=== PATIENT | female | born 1960 | race Caucasian/White ===

== ENCOUNTER 2023-07-17 07:45 | Day surgery (SDC) | payer BC ==
[~2023-07-17] VITALS: Ht 165.1 cm; Wt 89.3 kg
[~2023-07-17 07:45] MED LIST: Multivitamin1 EAC1 PO
[2023-07-17] MEDS ORDERED: LOSA25 PO (08:17)
--- NOTE | 2023-07-17 10:00 | NUR ---
07/17/23 Jess Tsai AROUND 0910, PT WAS INFORMED THAT DR. WHITESIDE HAD TO GO TO [facility]'S OR FOR AN EMERGENT PROCEDURE. WAS BROUGHT TO BEDSIDE. CALL LIGHT WITHIN REACH. PT AND PLEASANT. FOLLOWED-UP WITH PT AND THAT DR. HOODEmili WAS STILL IN AN EMERGENT PROCEDURE ON THE [facility] SIDE. PT WAS UPDATED THAT HER CASE WILL BE THE NEXT CASE ONCE DR. WHITESIDE WAS FINISHED WITH EMERGENT PROCEDURE. PT AND EXPRESSED UNDERSTANDING AND APPRICIATED THE UPDATE. PT AND STILL PLEASANT.
[2023-07-17 11:46] VITALS: BP 124/68
== END 2023-07-17 11:43 | disposition home or self-care (01) ==
LOC: ORSCSDS 07:45
PROVIDERS: Internal Medicine Gastroenterology
PROC: 0DBP8ZX Excision of Rectum, Via Natural or Artificial Opening Endoscopic, Diagnostic (ICD-10-PCS; principal; 2023-07-17 09:00)
DX: K59.09 Other constipation (principal); Z83.719 Family history of colon polyps, unspecified; I10 Essential (primary) hypertension; K62.1 Rectal polyp; Z79.899 Other long term (current) drug therapy
CPT/HCPCS: 88305; J2704; J7120